=== PATIENT | male | born 1940 | race African-American/Black ===

== ENCOUNTER 2016-11-17 11:24 | Emergency (ER) | payer MEDICARE, OTHER ==
[~2016-11-17] VITALS: Ht 182.9 cm; Wt 88.0 kg
[2016-11-17 12:19] LABS: BASOPHILS % 1.1 % (0.0-2.0); HEMATOCRIT. 42.7 % (42.0-52.0); HEMOGLOBIN. 14.4 g/dL (14.0-18.0); MEAN CORPUSCULAR HEMOGLOBIN 28.7 pg (28.0-32.0); MEAN CORPUSCULAR HGB CONC 33.8 g/dL (31.0-37.0); MEAN PLATELET VOLUME 7.7 fl (7.4-10.4); MONOCYTES % 7.6 % (2.0-8.0); NEUTROPHILS % 50.3 % (40.0-76.0); PLATELET 188 x1000/uL (130-400); RED BLOOD CELL COUNT 5.03 mill/uL (4.7-6.1); RED CELL DISTRIBUTION WIDTH 13.6 % (11.6-14.6); WHITE BLOOD COUNT 3.5 x1000/uL (4.5-11.0)
[2016-11-17 12:25] LABS: CHLORIDE 102 mEq/L (98-107); INDEX HEMOLYSI 1 (1-3); INDEX ICTERIC 1 (1-4); INDEX LIPEMIC 1 (1-3)
[2016-11-17 12:31] LABS: ALANINE AMINOTRANSFERASE 28 IU/L (13-61); ANION GAP 13; CALCIUM 9.1 mg/dL (8.5-10.1); CARBON DIOXIDE 29 mEq/L (21-32); UREA NITROGEN BLOOD 15 mg/dL (7-21); eGFR 60 mL/min (>60)
[2016-11-17 12:34] LABS: INR 1.1; PROTHROMBIN TIME 11.3 sec
[2016-11-17 12:35] LABS: TROPONIN I 0.03 ng/mL (0.00-0.04)
[2016-11-17] MEDS ORDERED: LABETALOL 5MG/ML SYR 20 MG/4 ML SYRINGE IV ONE (13:00)
[2016-11-17 16:23] VITALS: BP 125/67
[2016-11-17] MEDS ORDERED: ENOXAPARIN 40MG/0.4ML SYR SUBCUT SCH (16:45)
[2016-11-17] MEDS ORDERED: CLONIDINE 0.1MG TABLET PO PRN (16:45)
[2016-11-17] MEDS ORDERED: IPRATROPIUM/ALBUTEROL 0.5-3(2.5)MG/3ML NEB INH PRN (16:45)
[2016-11-17] MEDS ORDERED: ONDANSETRON HCL 4MG/2ML VIAL IV PRN (16:45)
[2016-11-17] MEDS ORDERED: ACETAMINOPHEN 325MG TABLET PO PRN (16:45)
[2016-11-17] MEDS ORDERED: HYDROCODONE/ACETAMINOPHEN 5/325MG TABLET PO PRN (16:45)
== END 2016-11-17 17:19 | disposition home or self-care (01) ==
LOC: ER 13:10
DX: I10 Essential (primary) hypertension (principal); G90.8 Other disorders of autonomic nervous system; R41.0 Disorientation, unspecified; G31.9 Degenerative disease of nervous system, unspecified; I25.10 Atherosclerotic heart disease of native coronary artery without angina pectoris; Z95.1 Presence of aortocoronary bypass graft
CPT/HCPCS: 36415; 70450; 71010; 80053; 84484; 85025; 85610; 93005; 99285

== ENCOUNTER 2018-05-04 11:07 | Inpatient (IN) | payer OTHER ==
[~2018-05-04] VITALS: Ht 175.3 cm; Wt 83.9 kg
[2018-05-04] MEDS ORDERED: LOSA25TA12 PO (11:10)
[2018-05-04] MEDS ORDERED: LABETALOL 5MG/ML SYR 20 MG/4 ML SYRINGE IV ONE (11:30)
[2018-05-04 12:12] LABS: BASOPHILS % 0.5 % (0.0-2.0); EOSINOPHILS % 0.4 % (0.0-5.0); HEMATOCRIT. 42.2 % (42.0-52.0); HEMOGLOBIN. 14.2 g/dL (14.0-18.0); LYMPHOCYTES % 24.7 % (20.0-50.0); MEAN CORPUSCULAR HEMOGLOBIN 29.5 pg (28.0-32.0); MEAN CORPUSCULAR VOLUME 87.6 fL (80.0-94.0); MEAN PLATELET VOLUME 8.3 fl (7.4-10.4); MONOCYTES % 3.7 % (2.0-8.0); NEUTROPHILS % 70.7 % (40.0-76.0); PLATELET 168 x1000/uL (130-400); RED BLOOD CELL COUNT 4.81 mill/uL (4.7-6.1); RED CELL DISTRIBUTION WIDTH 14.1 % (11.6-14.6)
[2018-05-04 12:17] LABS: CHLORIDE 102 mEq/L (98-107); INR 1.1; PARTIAL THROMBOPLASTIN TIME 28.5 sec (23.4-31.0); PROTHROMBIN TIME 11.1 sec (9.1-11.1)
[2018-05-04 13:27] LABS: CLARITY URINE CLEAR (CLEAR); COLOR URINE YELLOW (YELLOW); KETONES URINE NEGATIVE (NEGATIVE); LEUKOCYTE ESTERASE URINE NEGATIVE (NEGATIVE); NITRITE URINE NEGATIVE (NEGATIVE); OCCULT BLOOD URINE NEGATIVE (NEGATIVE); PH URINE 6.5 (4.5-8.0); PROTEIN URINE NEGATIVE (NEGATIVE); SPECIFIC GRAVITY URINE 1.014 (1.005-1.030); UROBILINOGEN URINE 0.2 E.U./dL (0.2-1.0)
[2018-05-04] MEDS ORDERED: DIPHENHYDRAMINE 50MG/ML VIAL IV PRN (16:45)
[2018-05-04] MEDS ORDERED: MECLIZINE 25MG TABLET PO PRN (16:45)
[2018-05-04] MEDS ORDERED: CLONIDINE 0.1MG TABLET PO PRN (16:45)
[2018-05-04] MEDS ORDERED: ONDANSETRON HCL 4MG/2ML INJ IV PRN (16:45)
[2018-05-04] MEDS ORDERED: HYDROCODONE/ACETAMINOPHEN 5/325MG TABLET PO PRN (16:45)
[2018-05-04] MEDS ORDERED: ACETAMINOPHEN 650MG SUPP PR PRN (16:45)
[2018-05-04] MEDS ORDERED: MAGNESIUM/ALUMINUM HYDROXIDE/SIMETHICONE 30ML UDC PO PRN (16:45)
[2018-05-04] MEDS ORDERED: IPRATROPIUM/ALBUTEROL 0.5-3(2.5)MG/3ML NEB INH PRN (16:45)
[2018-05-04] MEDS ORDERED: ASPIRIN 81MG TABLET PO ONE (17:00)
[2018-05-04] MEDS: LOSARTAN POTASSIUM 25 MG TABLET PO SCH (18:43)
[2018-05-04 20:11] VITALS: BP 209/77
[2018-05-04] MEDS ORDERED: NA PHOS,M-B/NA PHOS,DI-BA ENEMA 118ML PR PRN (20:30)
[2018-05-04 20:33] LABS: *AMPHETAMINES SCREEN URINE NEGATIVE (NEGATIVE); *BARBITURATES SCREEN URINE NEGATIVE (NEGATIVE); *BENZODIAZEPINES SCREEN URINE NEGATIVE (NEGATIVE); *COCAINE SCREEN URINE NEGATIVE (NEGATIVE); CANNABINOID URINE SCREEN NEGATIVE (NEGATIVE); METHADONE URINE SCREEN NEGATIVE (NEGATIVE); OPIATES URINE SCREEN NEGATIVE (NEGATIVE); PHENCYCLIDINE URINE SCREEN NEGATIVE (NEGATIVE)
[2018-05-04 20:40] VITALS: BP 209/77
[2018-05-04] MEDS ORDERED: ASPI-986 MT (20:48)
[2018-05-04] MEDS ORDERED: LOSA50TA20 MT (20:48)
[2018-05-04] MEDS ORDERED: CARV3.1242 MT (20:50)
[2018-05-04] MEDS ORDERED: VIAG50 MT (20:51)
[2018-05-04] MEDS ORDERED: [UNRECOGNIZED DRUG - CODE] TP (20:52)
[2018-05-04] MEDS ORDERED: MECL-174 PO (20:54)
[2018-05-04] MEDS: ENOXAPARIN 40MG/0.4ML SYR SUBCUT SCH (21:53)
[2018-05-04] MEDS: ASPIRIN 81MG EC TABLET PO SCH (21:54)
[2018-05-04] MEDS: CARVEDILOL 3.125 MG TABLET PO SCH (21:54)
[2018-05-05] VITALS (7 sets, daily range): BP systolic 124–193; BP diastolic 59–98
[2018-05-05 02:26] LABS: CREATINE KINASE MB FRACTION 4.1 ng/mL (0.5-3.6)
[2018-05-05 07:39] LABS: BASOPHILS % 0.7 % (0.0-2.0); EOSINOPHILS % 1.9 % (0.0-5.0); HEMATOCRIT. 39.3 % (42.0-52.0); HEMOGLOBIN. 13.6 g/dL (14.0-18.0); LYMPHOCYTES % 51.1 % (20.0-50.0); MEAN CORPUSCULAR HEMOGLOBIN 30.1 pg (28.0-32.0); MEAN CORPUSCULAR VOLUME 86.9 fL (80.0-94.0); MEAN PLATELET VOLUME 8.1 fl (7.4-10.4); MONOCYTES % 6.7 % (2.0-8.0); NEUTROPHILS % 39.6 % (40.0-76.0); PLATELET 160 x1000/uL (130-400); RED BLOOD CELL COUNT 4.51 mill/uL (4.7-6.1); RED CELL DISTRIBUTION WIDTH 13.8 % (11.6-14.6)
[2018-05-05] MEDS ORDERED: PNEUMOCOCCAL 23-VAL P-SAC VAC 0.5 ML IM ONE (08:00)
[2018-05-05 08:14] LABS: CHLORIDE 106 mEq/L (98-107)
[2018-05-05 08:32] LABS: CREATINE KINASE 295 IU/L (39-308); CREATINE KINASE MB FRACTION 3.9 ng/mL (0.5-3.6); HDL CHOLESTEROL 39 mg/dL (40-59); LDL CHOLESTEROL 85 mg/dL (5-100)
[2018-05-05] MEDS: LOSARTAN POTASSIUM 25 MG TABLET PO SCH (09:17)
[2018-05-05] MEDS: ASPIRIN 81MG EC TABLET PO SCH (09:17)
[2018-05-05] MEDS: FUROSEMIDE 40MG/4ML VIAL IV SCH (09:18)
[2018-05-05] MEDS: CARVEDILOL 3.125 MG TABLET PO SCH ×2 (09:18→21:08)
[2018-05-05] MEDS ORDERED: INFLUENZA VIRUS VACCINE(AFLURIA) 0.5ML SYR IM ONE (10:00)
[2018-05-05] MEDS ORDERED: HYDRALAZINE HCL 50MG TABLET PO SCH (12:30)
[2018-05-05] MEDS ORDERED: CLONIDINE 0.2MG TABLET PO PRN (12:45)
[2018-05-05] MEDS ORDERED: CLONIDINE 0.1MG TABLET PO PRN (13:00)
[2018-05-05] MEDS ORDERED: CLONIDINE 0.2MG TABLET PO SCH (13:00)
[2018-05-05] MEDS: HYDRALAZINE HCL 100MG TABLET PO SCH ×2 (14:00→21:19)
[2018-05-05] MEDS: LOSARTAN POTASSIUM 50 MG TABLET PO SCH (21:08)
[2018-05-05] MEDS: CLONIDINE 0.1MG TABLET PO SCH (21:08)
[2018-05-05] MEDS: ENOXAPARIN 40MG/0.4ML SYR SUBCUT SCH (21:15)
[2018-05-05] MEDS: ACETAMINOPHEN 325MG TABLET PO PRN (22:57)
[2018-05-06] VITALS: BP 118/60
[2018-05-06 05:00] VITALS: BP_SYST 106; BP_SYST 112; BP_SYST 91; BP_DIAS 54; BP_DIAS 58
[2018-05-06] MEDS: HYDRALAZINE HCL 100MG TABLET PO SCH ×3 (05:41→23:33)
[2018-05-06 07:55] LABS: BASOPHILS % 0.5 % (0.0-2.0); EOSINOPHILS % 1.3 % (0.0-5.0); HEMATOCRIT. 42.9 % (42.0-52.0); HEMOGLOBIN. 14.6 g/dL (14.0-18.0); LYMPHOCYTES % 30.6 % (20.0-50.0); MEAN CORPUSCULAR HEMOGLOBIN 29.9 pg (28.0-32.0); MEAN CORPUSCULAR VOLUME 87.9 fL (80.0-94.0); MEAN PLATELET VOLUME 8.3 fl (7.4-10.4); MONOCYTES % 7.3 % (2.0-8.0); NEUTROPHILS % 60.3 % (40.0-76.0); PLATELET 185 x1000/uL (130-400); RED BLOOD CELL COUNT 4.88 mill/uL (4.7-6.1); RED CELL DISTRIBUTION WIDTH 14.1 % (11.6-14.6)
[2018-05-06 08:00] VITALS: BP 110/42
[2018-05-06 08:15] LABS: CHLORIDE 103 mEq/L (98-107)
[2018-05-06 08:31] LABS: CREATINE KINASE 287 IU/L (39-308); CREATINE KINASE MB FRACTION 13.5 ng/mL (0.5-3.6); HDL CHOLESTEROL 36 mg/dL (40-59); LDL CHOLESTEROL 86 mg/dL (5-100)
[2018-05-06] MEDS: CLONIDINE 0.1MG TABLET PO SCH ×2 (09:00→21:00)
[2018-05-06] MEDS: FUROSEMIDE 40MG/4ML VIAL IV SCH (09:34)
[2018-05-06] MEDS: ASPIRIN 81MG EC TABLET PO SCH (09:34)
[2018-05-06] MEDS: LOSARTAN POTASSIUM 50 MG TABLET PO SCH ×2 (09:35→20:20)
[2018-05-06] MEDS: CARVEDILOL 3.125 MG TABLET PO SCH ×2 (09:35→20:21)
[2018-05-06 12:00] VITALS: BP_SYST 110; BP_SYST 112; BP_DIAS 50; BP_DIAS 60
[2018-05-06 17:50] VITALS: BP 169/75
[2018-05-06] MEDS: NITROGLYCERIN 0.4MG TABLET SL SL PRN ×2 (17:55→18:01)
[2018-05-06] MEDS ORDERED: MORPHINE SULFATE 4 MG/ML CPJ (NOT FOR IM USE) IV PRN (18:00)
[2018-05-06 20:00] VITALS: BP_SYST 110; BP_SYST 122; BP_SYST 123; BP_DIAS 50; BP_DIAS 54
[2018-05-06] MEDS: ENOXAPARIN 40MG/0.4ML SYR SUBCUT SCH (20:24)
[2018-05-06] MEDS ORDERED: ENOXAPARIN 40MG/0.4ML SYR SUBCUT SCH (22:30)
[2018-05-06] MEDS: ACETAMINOPHEN 325MG TABLET PO PRN (23:33)
[2018-05-07] VITALS (12 sets, daily range): BP systolic 101–143; BP diastolic 53–74
[2018-05-07] MEDS: NITROGLYCERIN OINT 1GM/INCH UDPKT TD SCH ×5 (01:12→17:23)
[2018-05-07] MEDS: HYDRALAZINE HCL 100MG TABLET PO SCH ×2 (06:00→14:00)
[2018-05-07] MEDS: FUROSEMIDE 40MG/4ML VIAL IV SCH (08:56)
[2018-05-07] MEDS: LOSARTAN POTASSIUM 50 MG TABLET PO SCH (08:57)
[2018-05-07] MEDS: METOPROLOL TARTRATE 50MG TABLET PO SCH ×2 (08:57→21:15)
[2018-05-07] MEDS: ASPIRIN 81MG EC TABLET PO SCH (08:57)
[2018-05-07] MEDS: CLONIDINE 0.1MG TABLET PO SCH ×2 (08:58→21:00)
[2018-05-07] MEDS ORDERED: ENOXAPARIN 80MG/0.8ML SYR SUBCUT SCH (09:00)
[2018-05-07] MEDS ORDERED: SODIUM CHLORIDE 0.9% 1,000 ML IV SCH (09:15)
[2018-05-07] MEDS ORDERED: LIDOCAINE HCL 1% 20ML VIAL (Pyxis) INJ ONE (10:12)
[2018-05-07] MEDS: CLOPIDOGREL 75MG TABLET PO SCH (10:12)
[2018-05-07] MEDS ORDERED: IODIXANOL 320MG/ML 100 ML BOTTLE IV ONE ×2 (10:12→11:09)
[2018-05-07] MEDS ORDERED: MIDAZOLAM HCL 2 MG/2 ML VIAL ONE (10:47)
[2018-05-07] MEDS ORDERED: FENTANYL CITRATE/PF 50MCG/ML 2ML VIAL ONE (10:48)
[2018-05-07] MEDS ORDERED: ATROPINE SULFATE 1MG/10ML SYR IV PRN (11:30)
[2018-05-07] MEDS ORDERED: ACETAMINOPHEN 325MG TABLET PO PRN (11:30)
[2018-05-07] MEDS ORDERED: NITROGLYCERIN 50MCG/ML 10ML VIAL (CATH LAB) IV ONE (15:21)
[2018-05-07] MEDS ORDERED: NICARDIPINE 100MCG/ML 10ML VIAL (CATH LAB) IV ONE (15:21)
[2018-05-07] MEDS: ACETAMINOPHEN 325MG TABLET PO PRN (16:31)
[2018-05-07] MEDS: ISOSORBIDE MONONITRATE 30MG TABLET SR 24HR PO SCH (21:15)
[2018-05-08] VITALS (10 sets, daily range): BP systolic 108–138; BP diastolic 56–86
[2018-05-08] MEDS: ACETAMINOPHEN 325MG TABLET PO PRN (00:08)
[2018-05-08 06:31] LABS: BASOPHILS % 0.4 % (0.0-2.0); EOSINOPHILS % 1.4 % (0.0-5.0); HEMATOCRIT. 38.9 % (42.0-52.0); HEMOGLOBIN. 13.3 g/dL (14.0-18.0); LYMPHOCYTES % 35.6 % (20.0-50.0); MEAN PLATELET VOLUME 7.8 fl (7.4-10.4); MONOCYTES % 8.6 % (2.0-8.0); PLATELET 186 x1000/uL (130-400); RED BLOOD CELL COUNT 4.42 mill/uL (4.7-6.1); RED CELL DISTRIBUTION WIDTH 14.1 % (11.6-14.6)
[2018-05-08 07:21] LABS: CHLORIDE 103 mEq/L (98-107)
[2018-05-08] MEDS: ISOSORBIDE MONONITRATE 30MG TABLET SR 24HR PO SCH (08:51)
[2018-05-08] MEDS: CLOPIDOGREL 75MG TABLET PO SCH (08:51)
[2018-05-08] MEDS: METOPROLOL TARTRATE 50MG TABLET PO SCH (08:52)
[2018-05-08] MEDS ORDERED: CLOPIDOGREL 75MG TABLET PO SCH (09:00)
[2018-05-08] MEDS: CLONIDINE 0.1MG TABLET PO SCH (09:00)
[2018-05-08] MEDS ORDERED: ASPIRIN 81MG TABLET PO SCH (09:00)
[2018-05-08] MEDS ORDERED: LOSARTAN POTASSIUM 50 MG TABLET PO SCH (09:00)
[2018-05-08 20:19] LABS: HEPATITIS B SURFACE ANTIGEN NEGATIVE
[2018-05-08 20:47] LABS: HEPATITIS B CORE AB IGM NEGATIVE
[2018-05-08 20:48] LABS: HEPATITIS A AB IGM NEGATIVE (NEGATIVE)
== END 2018-05-08 19:06 | disposition home or self-care (01) | DRG 280 ==
LOC: ER 11:07 → 8WST 12:15 → EDBEDREQ 12:19 → ENRESERV 19:21 → 3WST 05-06 22:41
PROVIDERS: ADMIT Internal Medicine; ATTEND Internal Medicine
PROC: 4A023N7 Measurement of Cardiac Sampling and Pressure, Left Heart, Percutaneous Approach (ICD-10-PCS; principal; 2018-05-07)
PROC: B2131ZZ Fluoroscopy of Multiple Coronary Artery Bypass Grafts using Low Osmolar Contrast (ICD-10-PCS; 2018-05-07)
PROC: B2181ZZ Fluoroscopy of Left Internal Mammary Bypass Graft using Low Osmolar Contrast (ICD-10-PCS; 2018-05-07)
PROC: B2111ZZ Fluoroscopy of Multiple Coronary Arteries using Low Osmolar Contrast (ICD-10-PCS; 2018-05-07)
DX: I21.4 Non-ST elevation (NSTEMI) myocardial infarction (principal); I50.33 Acute on chronic diastolic (congestive) heart failure; N17.9 Acute kidney failure, unspecified; R73.9 Hyperglycemia, unspecified; E78.5 Hyperlipidemia, unspecified; E78.00 Pure hypercholesterolemia, unspecified; I11.0 Hypertensive heart disease with heart failure; H40.9 Unspecified glaucoma; G90.8 Other disorders of autonomic nervous system; I25.10 Atherosclerotic heart disease of native coronary artery without angina pectoris; I16.0 Hypertensive urgency; Z82.49 Family history of ischemic heart disease and other diseases of the circulatory system; Z95.1 Presence of aortocoronary bypass graft; Z79.899 Other long term (current) drug therapy; Z79.82 Long term (current) use of aspirin
CPT/HCPCS: 36415; 71045; 80048; 80061; 80305; 82550; 82553; 83036; 83735; 83880; 84439; 84443; 84484; 85379; 86703; 86705; 86709; 86803; 87340; 90686; 90732; 93005; 93306; 93455; 93880; 93970; 96374; 97162; 99291; C1760; C1769; C1887; C1893; J1644; J1650; J1940; J2250; J2270; J3010; J3490; J7030; J8597; Q9967

== ENCOUNTER 2018-10-27 13:04 | Inpatient (IN) | payer OTHER ==
[~2018-10-27] VITALS: Ht 182.9 cm; Wt 82.6 kg
[~2018-10-27 13:04] MED LIST: LOSA50TA20 MT
[2018-10-27 14:02] LABS: BASOPHILS % 0.4 % (0.0-2.0); EOSINOPHILS % 0.3 % (0.0-5.0); HEMOGLOBIN. 14.7 g/dL (14.0-18.0); LYMPHOCYTES % 19.3 % (20.0-50.0); MEAN CORPUSCULAR VOLUME 87.7 fL (80.0-94.0); MEAN PLATELET VOLUME 7.6 fl (7.4-10.4); MONOCYTES % 4.9 % (2.0-8.0); NEUTROPHILS % 75.1 % (40.0-76.0); PLATELET 194 x1000/uL (130-400); RED CELL DISTRIBUTION WIDTH 14.1 % (11.6-14.6)
[2018-10-27 14:06] LABS: CHLORIDE 102 mEq/L (98-107)
[2018-10-27 14:09] LABS: INR 1.1; PARTIAL THROMBOPLASTIN TIME 28.3 sec (23.4-31.0); PROTHROMBIN TIME 10.8 sec (9.6-11.0)
[2018-10-27] MEDS ORDERED: MECLIZINE 25MG TABLET PO ONE (14:30)
[2018-10-27] MEDS ORDERED: ASPIRIN 81MG TABLET PO ONE (16:15)
[2018-10-27] MEDS ORDERED: IPRATROPIUM/ALBUTEROL 0.5-3(2.5)MG/3ML NEB INH PRN (18:15)
[2018-10-27] MEDS ORDERED: DIPHENHYDRAMINE 50MG/ML VIAL IV PRN (18:30)
[2018-10-27] MEDS ORDERED: MAGNESIUM/ALUMINUM HYDROXIDE/SIMETHICONE 30ML UDC PO PRN (18:30)
[2018-10-27] MEDS ORDERED: ACETAMINOPHEN 325MG TABLET PO PRN (18:30)
[2018-10-27] MEDS ORDERED: ACETAMINOPHEN 650MG SUPP PR PRN (18:30)
[2018-10-27] MEDS ORDERED: DOCUSATE SODIUM 100MG CAPSULE PO PRN (18:30)
[2018-10-27] MEDS ORDERED: MECLIZINE 25MG TABLET PO PRN (18:30)
[2018-10-27 20:20] VITALS: BP_SYST 180; BP_SYST 189; BP_SYST 204; BP_DIAS 80; BP_DIAS 82; BP_DIAS 96
[2018-10-27] MEDS ORDERED: HYDROCODONE/ACETAMINOPHEN 5/325MG TABLET PO PRN (22:01)
[2018-10-27] MEDS ORDERED: CLONIDINE 0.1MG TABLET PO PRN (22:02)
[2018-10-27] MEDS: LOSARTAN POTASSIUM 25 MG TABLET PO SCH (22:27)
[2018-10-28] VITALS (8 sets, daily range): BP systolic 101–180; BP diastolic 49–80
[2018-10-28 02:05] LABS: CREATINE KINASE 524 IU/L (39-308)
[2018-10-28 02:07] LABS: CREATINE KINASE MB FRACTION 6.1 ng/mL (0.5-3.6)
[2018-10-28 07:16] LABS: BASOPHILS % 0.6 % (0.0-2.0); EOSINOPHILS % 2.4 % (0.0-5.0); HEMATOCRIT. 39.4 % (42.0-52.0); HEMOGLOBIN. 13.6 g/dL (14.0-18.0); LYMPHOCYTES % 40.2 % (20.0-50.0); MEAN CORPUSCULAR HEMOGLOBIN 29.9 pg (28.0-32.0); MEAN CORPUSCULAR VOLUME 86.7 fL (80.0-94.0); MEAN PLATELET VOLUME 7.8 fl (7.4-10.4); MONOCYTES % 9.2 % (2.0-8.0); NEUTROPHILS % 47.6 % (40.0-76.0); PLATELET 183 x1000/uL (130-400); RED BLOOD CELL COUNT 4.54 mill/uL (4.7-6.1); RED CELL DISTRIBUTION WIDTH 13.6 % (11.6-14.6)
[2018-10-28 07:24] LABS: CHLORIDE 104 mEq/L (98-107)
[2018-10-28 07:35] LABS: CREATINE KINASE 611 IU/L (39-308); LDL CHOLESTEROL 90 mg/dL (5-100)
[2018-10-28 07:36] LABS: T4 FREE 1.15 ng/dL (0.76-1.46)
[2018-10-28 07:37] LABS: HDL CHOLESTEROL 42 mg/dL (40-59)
[2018-10-28] MEDS ORDERED: PNEUMOCOCCAL 23-VAL P-SAC VAC 0.5 ML IM ONE (08:00)
[2018-10-28] MEDS: LOSARTAN POTASSIUM 25 MG TABLET PO SCH (09:00)
[2018-10-28] MEDS ORDERED: ENOXAPARIN 40MG/0.4ML SYR SUBCUT SCH (09:00)
[2018-10-28] MEDS ORDERED: ASPIRIN 81MG EC TABLET PO SCH (09:00)
[2018-10-28] MEDS ORDERED: POTASSIUM CHLORIDE 20MEQ TABLET SR PO NR (10:45)
[2018-10-28] MEDS ORDERED: SODIUM CHLORIDE 0.45% 1,000 ML IV SCH (10:45)
[2018-10-28 17:01] LABS: CREATINE KINASE MB FRACTION 5.5 ng/mL (0.5-3.6)
== END 2018-10-28 22:20 | disposition home or self-care (01) | DRG 73 ==
LOC: ER 13:04 → 6WST 14:37 → EDBEDREQ 14:43 → ENRESERV 20:26 → CANRESERV 20:26 → ENRESERV 20:29
PROVIDERS: ADMIT Internal Medicine; ATTEND Internal Medicine
DX: G90.8 Other disorders of autonomic nervous system (principal); I50.33 Acute on chronic diastolic (congestive) heart failure; M62.82 Rhabdomyolysis; I24.9 Acute ischemic heart disease, unspecified; I11.0 Hypertensive heart disease with heart failure; I49.9 Cardiac arrhythmia, unspecified; R42 Dizziness and giddiness; E78.5 Hyperlipidemia, unspecified; R73.9 Hyperglycemia, unspecified; E87.6 Hypokalemia; I25.10 Atherosclerotic heart disease of native coronary artery without angina pectoris; Z95.1 Presence of aortocoronary bypass graft; Z86.73 Personal history of transient ischemic attack (TIA), and cerebral infarction without residual deficits; Z91.19 Patient's noncompliance with other medical treatment and regimen
CPT/HCPCS: 36415; 70551; 71045; 74018; 80061; 82550; 82553; 83036; 83735; 83880; 84439; 84443; 84484; 85379; 90732; 93005; 93306; 93880; 97162; 99285; J1650; J8597

== ENCOUNTER 2022-04-19 14:22 | Inpatient (IN) | payer MEDICAID, OTHER ==
[~2022-04-19] VITALS: Ht 182.9 cm; Wt 61.2 kg
[~2022-04-19 14:22] MED LIST changes: -LOSA50TA20 MT; +LOSA50TA41 MT
[2022-04-19] MEDS ORDERED: VISCOUS LIDOCAINE 2% 15 ML UDC PO ONE (14:45)
[2022-04-19] MEDS ORDERED: ASPIRIN 81MG TABLET PO ONE (14:45)
[2022-04-19] MEDS ORDERED: MAGNESIUM/ALUMINUM HYDROXIDE/SIMETHICONE 30ML UDC PO ONE (14:45)
[2022-04-19] MEDS ORDERED: DICYCLOMINE 10 MG/5 ML ORAL SYR PO ONE (14:45)
[2022-04-19 15:03] LABS: BASOPHILS % 0.8 % (0.0-2.0); EOSINOPHILS % 0.3 % (0.0-5.0); HEMATOCRIT. 36.9 % (42.0-52.0); HEMOGLOBIN. 11.6 g/dL (14.0-18.0); LYMPHOCYTES % 14.6 % (20.0-50.0); MEAN CORPUSCULAR HEMOGLOBIN 25.1 pg (28.0-32.0); MEAN CORPUSCULAR VOLUME 79.9 fL (80.0-94.0); MEAN PLATELET VOLUME 9.1 fl (7.4-10.4); MONOCYTES % 4.5 % (2.0-8.0); NEUTROPHILS % 79.8 % (40.0-76.0); PLATELET 185 x1000/uL (130-400); RED BLOOD CELL COUNT 4.62 mill/uL (4.7-6.1); RED CELL DISTRIBUTION WIDTH 21.5 % (11.6-14.6)
[2022-04-19 15:17] LABS: CHLORIDE 110 mEq/L (98-107)
[2022-04-19] MEDS ORDERED: SODIUM CHLORIDE 0.9% 1,000 ML IV ONE (16:00)
[2022-04-19] MEDS ORDERED: FUROSEMIDE 40MG TABLET PO NR (16:15)
[2022-04-19 22:37] VITALS: BP 135/95
[2022-04-19 22:38] VITALS: BP 135/95
[2022-04-19] MEDS ORDERED: NITR0.4T49 SL (23:04)
[2022-04-19] MEDS ORDERED: LISI2.5T47 PO (23:04)
[2022-04-19] MEDS ORDERED: RANO500T3 PO (23:04)
[2022-04-19] MEDS ORDERED: ASPI-1497 PO (23:04)
[2022-04-19] MEDS ORDERED: ATOR40TA70 PO (23:04)
[2022-04-19] MEDS ORDERED: TAMS-11 PO (23:04)
[2022-04-19] MEDS ORDERED: TICA90TA PO (23:04)
[2022-04-19] MEDS ORDERED: METO-396 PO (23:04)
[2022-04-19] MEDS ORDERED: FURO-151 PO (23:04)
[2022-04-19] MEDS ORDERED: BUSP7.5T7 PO (23:05)
[2022-04-20] VITALS (11 sets, daily range): BP systolic 93–157; BP diastolic 49–110
[2022-04-20] MEDS ORDERED: ACETAMINOPHEN 325MG TABLET PO PRN ×2 (01:15→15:30)
[2022-04-20 02:13] LABS: BASOPHILS % 0.5 % (0.0-2.0); EOSINOPHILS % 0.1 % (0.0-5.0); HEMATOCRIT. 41.1 % (42.0-52.0); HEMOGLOBIN. 13.1 g/dL (14.0-18.0); LYMPHOCYTES % 17.7 % (20.0-50.0); MEAN CORPUSCULAR HEMOGLOBIN 25.3 pg (28.0-32.0); MEAN CORPUSCULAR VOLUME 79.3 fL (80.0-94.0); MEAN PLATELET VOLUME 9.5 fl (7.4-10.4); NEUTROPHILS % 75.7 % (40.0-76.0); PLATELET 188 x1000/uL (130-400); RED BLOOD CELL COUNT 5.19 mill/uL (4.7-6.1); RED CELL DISTRIBUTION WIDTH 21.2 % (11.6-14.6)
[2022-04-20 02:17] LABS: CHLORIDE 107 mEq/L (98-107)
[2022-04-20 02:26] LABS: CREATINE KINASE 204 IU/L (39-308); CREATINE KINASE MB FRACTION 9.9 ng/mL (0.5-3.6); HDL CHOLESTEROL 69 mg/dL (40-59); LDL CHOLESTEROL 82 mg/dL (5-100)
[2022-04-20] MEDS: PANTOPRAZOLE 40MG DR TABLET PO SCH (06:10)
[2022-04-20] MEDS: RANOLAZINE 500 MG TAB.SR.12H PO SCH ×2 (08:40→21:30)
[2022-04-20] MEDS: TICAGRELOR 90 MG TABLET PO SCH ×2 (08:40→21:30)
[2022-04-20] MEDS: TAMSULOSIN HCL 0.4MG SR CAPSULE PO SCH (08:40)
[2022-04-20] MEDS: ASPIRIN 81MG TABLET PO SCH (08:41)
[2022-04-20] MEDS: BUSPIRONE HCL 5MG TABLET PO SCH ×2 (08:41→21:30)
[2022-04-20] MEDS: FUROSEMIDE 40MG TABLET PO SCH (08:41)
[2022-04-20] MEDS: LOSARTAN POTASSIUM 100 MG TABLET PO SCH (08:42)
[2022-04-20] MEDS ORDERED: NITROGLYCERIN 50MCG/ML 10ML VIAL (CATH LAB) IV ONE (09:00)
[2022-04-20] MEDS ORDERED: NICARDIPINE 100MCG/ML 10ML VIAL (CATH LAB) IV ONE (09:00)
[2022-04-20] MEDS ORDERED: METOPROLOL TARTRATE 25MG TABLET PO SCH (09:00)
[2022-04-20] MEDS ORDERED: ENOXAPARIN 40MG/0.4ML SYR SUBCUT SCH (09:00)
[2022-04-20] MEDS ORDERED: POTASSIUM CHLORIDE 20MEQ TABLET SR PO SCH (10:00)
[2022-04-20] MEDS ORDERED: MAGNESIUM 1 G PREMIX 100 ML IV SCH (11:00)
[2022-04-20] MEDS ORDERED: ASPIRIN/SOD BICARB/CITRIC ACID 324MG TAB EFF ONE (13:41)
[2022-04-20] MEDS ORDERED: HEPARIN SODIUM 1,000 UNIT/1ML VIAL IV ONE (13:41)
[2022-04-20] MEDS ORDERED: IODIXANOL 320MG/ML 100 ML BOTTLE IV ONE (13:42)
[2022-04-20] MEDS ORDERED: LIDOCAINE HCL/PF 2% 20MG/ML 5 ML/VIAL ONE (13:42)
[2022-04-20] MEDS ORDERED: MIDAZOLAM HCL 2 MG/2 ML VIAL ONE (14:07)
[2022-04-20] MEDS ORDERED: FENTANYL CITRATE/PF 50MCG/ML 2ML VIAL ONE (14:07)
[2022-04-20] MEDS ORDERED: FUROSEMIDE 40MG/4ML VIAL ONE (14:57)
[2022-04-20] MEDS ORDERED: SODIUM CHLORIDE 0.45% 1,000 ML IV SCH (15:30)
[2022-04-20] MEDS ORDERED: NALOXONE HCL 0.4MG/ML VIAL IV PRN (15:30)
[2022-04-20] MEDS ORDERED: ONDANSETRON HCL 4MG/2ML INJ IV PRN (15:30)
[2022-04-20] MEDS ORDERED: MORPHINE SULFATE 2 MG/ML CPJ (NOT FOR IM USE) IV PRN (15:30)
[2022-04-20] MEDS ORDERED: ATROPINE SULFATE 1MG/10ML SYR IV PRN (15:30)
[2022-04-20] MEDS ORDERED: CARVEDILOL 3.125 MG TABLET PO NR (19:00)
[2022-04-20] MEDS: ATORVASTATIN CALCIUM 40MG TABLET PO SCH (21:30)
[2022-04-21] VITALS (16 sets, daily range): BP systolic 83–126; BP diastolic 48–72
[2022-04-21 06:15] LABS: BASOPHILS % 0.5 % (0.0-2.0); EOSINOPHILS % 0.7 % (0.0-5.0); HEMATOCRIT. 36.7 % (42.0-52.0); HEMOGLOBIN. 11.5 g/dL (14.0-18.0); LYMPHOCYTES % 22.4 % (20.0-50.0); MEAN CORPUSCULAR HEMOGLOBIN 24.9 pg (28.0-32.0); MEAN CORPUSCULAR VOLUME 79.6 fL (80.0-94.0); MEAN PLATELET VOLUME 9.3 fl (7.4-10.4); MONOCYTES % 8.2 % (2.0-8.0); NEUTROPHILS % 68.2 % (40.0-76.0); PLATELET 147 x1000/uL (130-400); RED BLOOD CELL COUNT 4.61 mill/uL (4.7-6.1); RED CELL DISTRIBUTION WIDTH 21.1 % (11.6-14.6)
[2022-04-21] MEDS: PANTOPRAZOLE 40MG DR TABLET PO SCH (06:38)
[2022-04-21 06:52] LABS: CHLORIDE 104 mEq/L (98-107)
[2022-04-21 08:30] LABS: CLARITY URINE CLEAR (CLEAR); COLOR URINE YELLOW (YELLOW); KETONES URINE TRACE (NEGATIVE); LEUKOCYTE ESTERASE URINE NEGATIVE (NEGATIVE); NITRITE URINE NEGATIVE (NEGATIVE); OCCULT BLOOD URINE NEGATIVE (NEGATIVE); PH URINE 6.5 (4.5-8.0); PROTEIN URINE TRACE (NEGATIVE); SPECIFIC GRAVITY URINE 1.035 (1.005-1.030)
[2022-04-21] MEDS: ASPIRIN 81MG TABLET PO SCH (08:34)
[2022-04-21] MEDS: BUSPIRONE HCL 5MG TABLET PO SCH ×2 (08:35→22:06)
[2022-04-21] MEDS: TAMSULOSIN HCL 0.4MG SR CAPSULE PO SCH (08:35)
[2022-04-21] MEDS: FUROSEMIDE 40MG TABLET PO SCH (08:35)
[2022-04-21] MEDS: TICAGRELOR 90 MG TABLET PO SCH ×3 (08:35→17:55)
[2022-04-21] MEDS: LOSARTAN POTASSIUM 100 MG TABLET PO SCH (08:35)
[2022-04-21] MEDS: ENOXAPARIN 30MG/0.3ML SYR SUBCUT SCH ×2 (09:00→11:04)
[2022-04-21] MEDS ORDERED: CARVEDILOL 6.25 MG TABLET PO SCH (09:00)
[2022-04-21 09:09] LABS: *AMPHETAMINES SCREEN URINE NEGATIVE (NEGATIVE); *BARBITURATES SCREEN URINE NEGATIVE (NEGATIVE); *BENZODIAZEPINES SCREEN URINE PRESUMTIVE POSITIVE (NEGATIVE); *COCAINE SCREEN URINE NEGATIVE (NEGATIVE); CANNABINOID URINE SCREEN NEGATIVE (NEGATIVE); METHADONE URINE SCREEN NEGATIVE (NEGATIVE); OPIATES URINE SCREEN NEGATIVE (NEGATIVE); PHENCYCLIDINE URINE SCREEN NEGATIVE (NEGATIVE)
[2022-04-21] MEDS: RANOLAZINE 500 MG TAB.SR.12H PO SCH ×2 (11:04→22:05)
[2022-04-21] MEDS ORDERED: SODIUM CHLORIDE 0.9% 250 ML IV ONE (12:00)
[2022-04-21] MEDS: DOCUSATE SODIUM 100MG CAPSULE PO SCH (17:55)
[2022-04-21] MEDS: CARVEDILOL 3.125 MG TABLET PO SCH (21:00)
[2022-04-21] MEDS: MIDODRINE HCL 5MG TABLET PO SCH (22:06)
[2022-04-21] MEDS: ATORVASTATIN CALCIUM 40MG TABLET PO SCH (22:06)
[2022-04-22] VITALS (27 sets, daily range): BP systolic 74–127; BP diastolic 31–87
[2022-04-22] MEDS: FAMOTIDINE 20MG TABLET PO SCH (05:58)
[2022-04-22] MEDS: CARVEDILOL 3.125 MG TABLET PO SCH ×2 (08:41→20:42)
[2022-04-22] MEDS: MIDODRINE HCL 5MG TABLET PO SCH ×3 (08:53→17:22)
[2022-04-22] MEDS: DOCUSATE SODIUM 100MG CAPSULE PO SCH ×2 (08:53→17:20)
[2022-04-22] MEDS: TICAGRELOR 90 MG TABLET PO SCH ×2 (08:53→17:20)
[2022-04-22] MEDS: BUSPIRONE HCL 5MG TABLET PO SCH ×2 (08:53→20:42)
[2022-04-22] MEDS: ASPIRIN 81MG TABLET PO SCH (08:53)
[2022-04-22] MEDS: ENOXAPARIN 30MG/0.3ML SYR SUBCUT SCH (08:53)
[2022-04-22] MEDS: FUROSEMIDE 40MG TABLET PO SCH (09:00)
[2022-04-22] MEDS: TAMSULOSIN HCL 0.4MG SR CAPSULE PO SCH (09:00)
[2022-04-22] MEDS ORDERED: LOSARTAN POTASSIUM 100 MG TABLET PO SCH (09:00)
[2022-04-22] MEDS: RANOLAZINE 500 MG TAB.SR.12H PO SCH ×2 (12:43→20:42)
[2022-04-22 15:29] LABS: HEMATOCRIT 33.4 % (42.0-52.0); HEMOGLOBIN 10.7 g/dL (14.0-18.0); MEAN CORPUSCULAR HEMOGLOBIN 25.2 pg (28.0-32.0); MEAN CORPUSCULAR VOLUME 78.3 fL (80.0-94.0); PLATELET 147 x1000/uL (130-400); RED BLOOD CELL COUNT 4.26 mill/uL (4.7-6.1)
[2022-04-22 15:52] LABS: CHLORIDE 106 mEq/L (98-107)
[2022-04-22] MEDS: ATORVASTATIN CALCIUM 40MG TABLET PO SCH (20:41)
[2022-04-23] VITALS (12 sets, daily range): BP systolic 100–134; BP diastolic 50–81
[2022-04-23] MEDS: FAMOTIDINE 20MG TABLET PO SCH (06:20)
[2022-04-23] MEDS: BUSPIRONE HCL 5MG TABLET PO SCH ×2 (09:00→10:55)
[2022-04-23] MEDS: DOCUSATE SODIUM 100MG CAPSULE PO SCH ×2 (09:00→10:55)
[2022-04-23] MEDS: ASPIRIN 81MG TABLET PO SCH ×2 (09:00→10:55)
[2022-04-23] MEDS: TICAGRELOR 90 MG TABLET PO SCH ×3 (09:00→14:57)
[2022-04-23] MEDS: CARVEDILOL 3.125 MG TABLET PO SCH ×2 (09:00→10:56)
[2022-04-23] MEDS: TAMSULOSIN HCL 0.4MG SR CAPSULE PO SCH ×2 (09:00→10:57)
[2022-04-23] MEDS: FUROSEMIDE 40MG TABLET PO SCH ×2 (09:00→10:56)
[2022-04-23] MEDS: RANOLAZINE 500 MG TAB.SR.12H PO SCH (10:56)
[2022-04-23] MEDS: ENOXAPARIN 30MG/0.3ML SYR SUBCUT SCH (10:57)
[2022-04-23] MEDS ORDERED: MIDODRINE HCL 5MG TABLET PO SCH (13:00)
== END 2022-04-23 15:10 | disposition home health service (06) | DRG 281 ==
LOC: ER 14:26 → EDBEDREQ 18:22 → EDBEDREQTM 18:22 → ENRESERV 19:41 → 7EST 22:35 → 3WST 04-20 15:35
PROVIDERS: ADMIT Internal Medicine; ATTEND Internal Medicine
PROC: 4A023N7 Measurement of Cardiac Sampling and Pressure, Left Heart, Percutaneous Approach (ICD-10-PCS; principal; 2022-04-20)
PROC: B2111ZZ Fluoroscopy of Multiple Coronary Arteries using Low Osmolar Contrast (ICD-10-PCS; 2022-04-20)
PROC: B2131ZZ Fluoroscopy of Multiple Coronary Artery Bypass Grafts using Low Osmolar Contrast (ICD-10-PCS; 2022-04-20)
PROC: B2181ZZ Fluoroscopy of Left Internal Mammary Bypass Graft using Low Osmolar Contrast (ICD-10-PCS; 2022-04-20)
DX: I21.3 ST elevation (STEMI) myocardial infarction of unspecified site (principal); I47.2 Ventricular tachycardia; E78.5 Hyperlipidemia, unspecified; I10 Essential (primary) hypertension; I25.10 Atherosclerotic heart disease of native coronary artery without angina pectoris; I95.9 Hypotension, unspecified; Z20.822 Contact with and (suspected) exposure to COVID-19; I25.2 Old myocardial infarction; Z95.1 Presence of aortocoronary bypass graft; Z79.02 Long term (current) use of antithrombotics/antiplatelets; Z79.82 Long term (current) use of aspirin; Z79.899 Other long term (current) drug therapy
CPT/HCPCS: 36415; 71045; 80048; 80053; 80061; 80305; 81003; 82550; 82553; 83735; 83880; 84484; 85025; 85027; 87426; 93005; 93306; 93459; 93923; 99285; A6261; C1760; C1769; C1887; C1893; C9803; J1644; J1650; J1940; J2250; J3010; J3475; J3490; Q9967; J8499

== ENCOUNTER 2022-05-22 19:20 | Inpatient (IN) | payer OTHER ==
[~2022-05-22] VITALS: Ht 175.3 cm; Wt 65.3 kg
[~2022-05-22 19:20] MED LIST changes: +ASPI-1497 PO; +ATOR40TA70 PO; +BUSP7.5T7 PO; +FURO-151 PO; +LISI2.5T47 PO; +METO-396 PO; +NITR0.4T49 SL; +RANO500T3 PO; +TAMS-11 PO; +TICA90TA PO
[2022-05-22 20:31] LABS: BASOPHILS % 0.3 % (0.0-2.0); EOSINOPHILS % 0.1 % (0.0-5.0); HEMATOCRIT. 39.2 % (42.0-52.0); HEMOGLOBIN. 12.1 g/dL (14.0-18.0); MEAN CORPUSCULAR HEMOGLOBIN 25.7 pg (28.0-32.0); MEAN PLATELET VOLUME 9.1 fl (7.4-10.4); MONOCYTES % 3.5 % (2.0-8.0); NEUTROPHILS % 79.1 % (40.0-76.0); PLATELET 185 x1000/uL (130-400); RED BLOOD CELL COUNT 4.73 mill/uL (4.7-6.1); RED CELL DISTRIBUTION WIDTH 21.9 % (11.6-14.6)
[2022-05-22 20:39] LABS: CHLORIDE 105 mEq/L (98-107)
[2022-05-22] MEDS ORDERED: IPRATROPIUM/ALBUTEROL 0.5-3(2.5)MG/3ML NEB HHN ONE (20:45)
[2022-05-22] MEDS ORDERED: FUROSEMIDE 40MG/4ML VIAL IVP NR (23:00)
[2022-05-23] MEDS ORDERED: ENALAPRIL 2.5MG/2ML VIAL 2ML IV ONE
[2022-05-23] MEDS ORDERED: ENALAPRIL 1.25MG/ML VIAL 1ML IV NR
[2022-05-23 04:35] VITALS: BP 142/83
[2022-05-23 08:00] VITALS: BP 144/99
[2022-05-23] MEDS ORDERED: MAGNESIUM/ALUMINUM HYDROXIDE/SIMETHICONE 30ML UDC PO PRN (08:45)
[2022-05-23] MEDS ORDERED: ACETAMINOPHEN 325MG TABLET PO PRN (08:45)
[2022-05-23] MEDS ORDERED: ONDANSETRON HCL 4MG/2ML INJ IV PRN (08:45)
[2022-05-23] MEDS ORDERED: GUAIFENESIN 200MG/10ML SUGAR FREE UDC PO PRN (08:45)
[2022-05-23] MEDS ORDERED: IPRATROPIUM/ALBUTEROL 0.5-3(2.5)MG/3ML NEB HHN PRN (08:45)
[2022-05-23] MEDS ORDERED: FAMOTIDINE 20MG TABLET PO SCH (09:00)
[2022-05-23] MEDS ORDERED: ASPIRIN 81MG EC TABLET PO SCH (09:00)
[2022-05-23] MEDS: FAMOTIDINE 20MG TABLET PO SCH (10:19)
[2022-05-23] MEDS: ENOXAPARIN 40MG/0.4ML SYR SUBCUT SCH (10:19)
[2022-05-23] MEDS: FUROSEMIDE 40MG/4ML VIAL IVP SCH (10:43)
[2022-05-23 11:14] LABS: BG BASE EXCESS -4.1 mmol/L (-2.0-2.0); BG CARBOXYHEMOGLOBIN 0.2 % (0.5-1.5); BG DEOXYHEMOGLOBIN 4.4 % (0.0-5.0); BG FRACTION INSPIRED OXYGEN 80; BG HCO3 ACT 19.1 mmol/L (22.0-26.0); BG METHEMOGLOBIN 0.4 % (0.0-1.5); BG OXYGEN SATURATION 95.6 % (92.0-98.5); BG PCO2 29.8 mmHg (35.0-45.0); BG PH 7.424 (7.350-7.450); BG PO2 81.4 mmHg (75.0-100.0); BG SAMPLE SITE RIGHT BRACHIAL; BG TOTAL HEMOGLOBIN 14.1 g/dL (12.0-18.0); BG VENT MODE HIGH FLOW
[2022-05-23 12:00] VITALS: BP 119/76
[2022-05-23 16:00] VITALS: BP 111/67
[2022-05-23 16:46] LABS: CLARITY URINE CLEAR (CLEAR); COLOR URINE YELLOW (YELLOW); KETONES URINE NEGATIVE (NEGATIVE); LEUKOCYTE ESTERASE URINE 1+ (NEGATIVE); NITRITE URINE NEGATIVE (NEGATIVE); OCCULT BLOOD URINE NEGATIVE (NEGATIVE); PROTEIN URINE NEGATIVE (NEGATIVE); SPECIFIC GRAVITY URINE 1.011 (1.005-1.030); UROBILINOGEN URINE 0.2 E.U./dL (0.2-1.0)
[2022-05-23 18:30] LABS: CREATINE KINASE 213 IU/L (39-308); CREATINE KINASE MB FRACTION 7.8 ng/mL (0.5-3.6); HDL CHOLESTEROL 76 mg/dL (40-59); LDL CHOLESTEROL 56 mg/dL (5-100)
[2022-05-23 19:52] LABS: T4 FREE 1.27 ng/dL (0.76-1.46)
[2022-05-23 20:00] VITALS: BP 113/72
[2022-05-23] MEDS: AZITHROMYCIN 500 MG TABLET PO SCH (20:41)
[2022-05-24] VITALS: BP 103/51
[2022-05-24 00:44] LABS: CREATINE KINASE MB FRACTION 5.4 ng/mL (0.5-3.6)
[2022-05-24 04:00] VITALS: BP 101/66
[2022-05-24 08:00] VITALS: BP 110/77
[2022-05-24] MEDS: FUROSEMIDE 40MG/4ML VIAL IVP SCH ×2 (09:43→19:43)
[2022-05-24] MEDS: FAMOTIDINE 20MG TABLET PO SCH (09:43)
[2022-05-24] MEDS: AZITHROMYCIN 500 MG TABLET PO SCH (09:43)
[2022-05-24] MEDS: ENOXAPARIN 40MG/0.4ML SYR SUBCUT SCH (09:44)
[2022-05-24 11:26] LABS: HEMATOCRIT. 33.9 % (42.0-52.0); HEMOGLOBIN. 11.2 g/dL (14.0-18.0); MEAN CORPUSCULAR HEMOGLOBIN 26.3 pg (28.0-32.0); MEAN CORPUSCULAR VOLUME 79.9 fL (80.0-94.0); MEAN PLATELET VOLUME 9.6 fl (7.4-10.4); PLATELET 124 x1000/uL (130-400); RED BLOOD CELL COUNT 4.24 mill/uL (4.7-6.1); RED CELL DISTRIBUTION WIDTH 21.8 % (11.6-14.6)
[2022-05-24 12:41] LABS: PLATELET ESTIMATE SLIGHTLY DECREASED
[2022-05-24 13:09] LABS: CHLORIDE 102 mEq/L (98-107)
[2022-05-24 17:00] LABS: CHLORIDE 105 mEq/L (98-107)
[2022-05-24 17:10] LABS: CREATINE KINASE MB FRACTION 2.6 ng/mL (0.5-3.6); T4 FREE 1.3 ng/dL (0.76-1.46)
[2022-05-24] MEDS: CLOPIDOGREL 75MG TABLET PO SCH (19:43)
[2022-05-24 20:00] VITALS: BP 125/70
[2022-05-24] MEDS: METOPROLOL TARTRATE 25MG TABLET PO SCH (21:00)
[2022-05-24] MEDS: ATORVASTATIN CALCIUM 40MG TABLET PO SCH (21:37)
[2022-05-25] VITALS: BP 115/67
[2022-05-25 00:32] LABS: HEMOGLOBIN 11.2 g/dL (14.0-18.0); MEAN CORPUSCULAR HEMOGLOBIN 25.6 pg (28.0-32.0); MEAN CORPUSCULAR VOLUME 79.8 fL (80.0-94.0); PLATELET 125 x1000/uL (130-400); RED BLOOD CELL COUNT 4.38 mill/uL (4.7-6.1); RED CELL DISTRIBUTION WIDTH 21.7 % (11.6-14.6)
[2022-05-25 00:59] LABS: CREATINE KINASE MB FRACTION 1.7 ng/mL (0.5-3.6)
[2022-05-25 04:00] VITALS: BP 93/58
[2022-05-25 08:00] VITALS: BP 103/57
[2022-05-25] MEDS: METOPROLOL TARTRATE 25MG TABLET PO SCH ×2 (09:00→20:55)
[2022-05-25 09:24] LABS: CREATINE KINASE MB FRACTION 1.5 ng/mL (0.5-3.6)
[2022-05-25] MEDS: CLOPIDOGREL 75MG TABLET PO SCH (09:28)
[2022-05-25] MEDS: FAMOTIDINE 20MG TABLET PO SCH (09:28)
[2022-05-25] MEDS: LOSARTAN POTASSIUM 25 MG TABLET PO SCH (09:28)
[2022-05-25] MEDS: AZITHROMYCIN 500 MG TABLET PO SCH (09:28)
[2022-05-25] MEDS: ASPIRIN 81MG TABLET PO SCH (09:28)
[2022-05-25] MEDS: FUROSEMIDE 40MG/4ML VIAL IVP SCH ×2 (09:29→18:15)
[2022-05-25] MEDS: ENOXAPARIN 40MG/0.4ML SYR SUBCUT SCH (09:30)
[2022-05-25 12:00] VITALS: BP 101/68
[2022-05-25 16:00] VITALS: BP 94/52
[2022-05-25] MEDS: ACETAMINOPHEN 325MG TABLET PO PRN (18:15)
[2022-05-25 20:00] VITALS: BP 99/58
[2022-05-25] MEDS: ATORVASTATIN CALCIUM 40MG TABLET PO SCH (21:38)
[2022-05-26] VITALS (7 sets, daily range): BP systolic 93–117; BP diastolic 44–70
[2022-05-26] MEDS: AZITHROMYCIN 500 MG TABLET PO SCH (09:22)
[2022-05-26] MEDS: ASPIRIN 81MG TABLET PO SCH (09:22)
[2022-05-26] MEDS: FAMOTIDINE 20MG TABLET PO SCH (09:22)
[2022-05-26] MEDS: FUROSEMIDE 40MG/4ML VIAL IVP SCH ×2 (09:22→18:05)
[2022-05-26] MEDS: CLOPIDOGREL 75MG TABLET PO SCH (09:22)
[2022-05-26] MEDS: ENOXAPARIN 40MG/0.4ML SYR SUBCUT SCH (09:22)
[2022-05-26] MEDS: LOSARTAN POTASSIUM 25 MG TABLET PO SCH (09:23)
[2022-05-26] MEDS: METOPROLOL TARTRATE 25MG TABLET PO SCH ×2 (09:23→21:05)
[2022-05-26 11:38] LABS: HEMATOCRIT 30.8 % (42.0-52.0); HEMOGLOBIN 10.3 g/dL (14.0-18.0); MEAN CORPUSCULAR HEMOGLOBIN 26.4 pg (28.0-32.0); MEAN CORPUSCULAR VOLUME 79.2 fL (80.0-94.0); PLATELET 144 x1000/uL (130-400); RED BLOOD CELL COUNT 3.89 mill/uL (4.7-6.1); RED CELL DISTRIBUTION WIDTH 21.1 % (11.6-14.6)
[2022-05-26 12:03] LABS: CHLORIDE 102 mEq/L (98-107)
[2022-05-26 17:24] LABS: BG BASE EXCESS 5.1 mmol/L (-2.0-2.0); BG CARBOXYHEMOGLOBIN 0.1 % (0.5-1.5); BG DEOXYHEMOGLOBIN 7.3 % (0.0-5.0); BG HCO3 ACT 29.7 mmol/L (22.0-26.0); BG METHEMOGLOBIN 0.3 % (0.0-1.5); BG OXYGEN SATURATION 92.7 % (92.0-98.5); BG OXYHEMOGLOBIN 92.3 % (94.0-97.0); BG PCO2 43.9 mmHg (35.0-45.0); BG PH 7.448 (7.350-7.450); BG PO2 67.1 mmHg (75.0-100.0); BG SAMPLE SITE RIGHT BRACHIAL; BG TOTAL HEMOGLOBIN 11.6 g/dL (12.0-18.0); BG VENT MODE ROOM AIR
[2022-05-26] MEDS: ATORVASTATIN CALCIUM 40MG TABLET PO SCH (21:04)
[2022-05-27] VITALS: BP 137/71
[2022-05-27 04:00] VITALS: BP 129/64
[2022-05-27 08:00] VITALS: BP 132/79
[2022-05-27] MEDS ORDERED: POTASSIUM CHLORIDE 20MEQ TABLET SR PO SCH (08:00)
[2022-05-27] MEDS: AZITHROMYCIN 500 MG TABLET PO SCH (09:39)
[2022-05-27] MEDS: FAMOTIDINE 20MG TABLET PO SCH (09:39)
[2022-05-27] MEDS: ASPIRIN 81MG TABLET PO SCH (09:39)
[2022-05-27] MEDS: CLOPIDOGREL 75MG TABLET PO SCH (09:39)
[2022-05-27] MEDS: METOPROLOL TARTRATE 25MG TABLET PO SCH ×2 (09:40→21:08)
[2022-05-27] MEDS: FUROSEMIDE 40MG/4ML VIAL IVP SCH ×2 (09:40→18:24)
[2022-05-27] MEDS: LOSARTAN POTASSIUM 25 MG TABLET PO SCH (09:40)
[2022-05-27] MEDS: ENOXAPARIN 40MG/0.4ML SYR SUBCUT SCH (09:41)
[2022-05-27 12:00] VITALS: BP 96/53
[2022-05-27 16:00] VITALS: BP 106/64
[2022-05-27 20:28] VITALS: BP 124/80
[2022-05-27] MEDS: ATORVASTATIN CALCIUM 40MG TABLET PO SCH (21:06)
[2022-05-28] VITALS: BP 108/64
[2022-05-28 04:00] VITALS: BP 116/70
[2022-05-28 07:39] LABS: HEMATOCRIT 33.6 % (42.0-52.0); MEAN CORPUSCULAR HEMOGLOBIN 25.6 pg (28.0-32.0); MEAN CORPUSCULAR VOLUME 78.5 fL (80.0-94.0); PLATELET 176 x1000/uL (130-400); RED BLOOD CELL COUNT 4.29 mill/uL (4.7-6.1); RED CELL DISTRIBUTION WIDTH 20.8 % (11.6-14.6)
[2022-05-28 08:00] VITALS: BP 124/69
[2022-05-28 08:12] LABS: CHLORIDE 100 mEq/L (98-107)
[2022-05-28] MEDS: LOSARTAN POTASSIUM 25 MG TABLET PO SCH (08:31)
[2022-05-28] MEDS: ASPIRIN 81MG TABLET PO SCH (08:31)
[2022-05-28] MEDS: FAMOTIDINE 20MG TABLET PO SCH (08:31)
[2022-05-28] MEDS: METOPROLOL TARTRATE 25MG TABLET PO SCH ×2 (08:31→21:00)
[2022-05-28] MEDS: AZITHROMYCIN 500 MG TABLET PO SCH (08:31)
[2022-05-28] MEDS: CLOPIDOGREL 75MG TABLET PO SCH (08:31)
[2022-05-28] MEDS: ENOXAPARIN 40MG/0.4ML SYR SUBCUT SCH (08:31)
[2022-05-28] MEDS: FUROSEMIDE 40MG/4ML VIAL IVP SCH (08:32)
[2022-05-28 12:00] VITALS: BP 67/40
[2022-05-28] MEDS ORDERED: DEXT 5%/0.9% NACL 1,000 ML IV SCH (12:30)
[2022-05-28 13:09] LABS: BG BASE EXCESS 4.7 mmol/L (-2.0-2.0); BG CARBOXYHEMOGLOBIN 0.2 % (0.5-1.5); BG DEOXYHEMOGLOBIN 2.3 % (0.0-5.0); BG FRACTION INSPIRED OXYGEN 21; BG HCO3 ACT 27.2 mmol/L (22.0-26.0); BG METHEMOGLOBIN 0.2 % (0.0-1.5); BG OXYGEN SATURATION 97.7 % (92.0-98.5); BG OXYHEMOGLOBIN 97.3 % (94.0-97.0); BG PCO2 33.5 mmHg (35.0-45.0); BG PH 7.528 (7.350-7.450); BG PO2 95.8 mmHg (75.0-100.0); BG SAMPLE SITE LEFT BRACHIAL; BG TOTAL HEMOGLOBIN 12.1 g/dL (12.0-18.0); BG VENT MODE ROOM AIR
[2022-05-28 16:00] VITALS: BP 114/63
[2022-05-28 21:27] VITALS: BP 95/50
[2022-05-28] MEDS: ATORVASTATIN CALCIUM 40MG TABLET PO SCH (22:10)
[2022-05-29] VITALS: BP_SYST 118; BP_SYST 96; BP_DIAS 50; BP_DIAS 52
[2022-05-29 06:00] VITALS: BP 112/54
[2022-05-29 08:00] VITALS: BP 151/103
[2022-05-29] MEDS: FAMOTIDINE 20MG TABLET PO SCH (10:02)
[2022-05-29] MEDS: ASPIRIN 81MG TABLET PO SCH (10:02)
[2022-05-29] MEDS: METOPROLOL TARTRATE 25MG TABLET PO SCH ×2 (10:02→21:14)
[2022-05-29] MEDS: CLOPIDOGREL 75MG TABLET PO SCH (10:02)
[2022-05-29] MEDS: FUROSEMIDE 40MG/4ML VIAL IVP SCH ×2 (10:02→17:13)
[2022-05-29] MEDS: ENOXAPARIN 40MG/0.4ML SYR SUBCUT SCH (10:02)
[2022-05-29] MEDS: NITROGLYCERIN 0.4MG TABLET SL SL PRN ×2 (10:03→10:08)
[2022-05-29] MEDS: LOSARTAN POTASSIUM 25 MG TABLET PO SCH (10:03)
[2022-05-29 12:00] VITALS: BP 87/45
[2022-05-29 16:00] VITALS: BP 100/50
[2022-05-29 20:00] VITALS: BP 110/61
[2022-05-29] MEDS: ATORVASTATIN CALCIUM 40MG TABLET PO SCH (22:00)
[2022-05-30] VITALS: BP 109/58
[2022-05-30 04:00] VITALS: BP 116/70
[2022-05-30 08:00] VITALS: BP 121/78
[2022-05-30] MEDS: FUROSEMIDE 40MG/4ML VIAL IVP SCH ×2 (10:28→16:03)
[2022-05-30] MEDS: ASPIRIN 81MG TABLET PO SCH (10:28)
[2022-05-30] MEDS: FAMOTIDINE 20MG TABLET PO SCH (10:29)
[2022-05-30] MEDS: METOPROLOL TARTRATE 25MG TABLET PO SCH ×2 (10:29→21:02)
[2022-05-30] MEDS: CLOPIDOGREL 75MG TABLET PO SCH (10:29)
[2022-05-30] MEDS: LOSARTAN POTASSIUM 25 MG TABLET PO SCH (10:29)
[2022-05-30] MEDS: ENOXAPARIN 40MG/0.4ML SYR SUBCUT SCH (10:31)
[2022-05-30] MEDS ORDERED: IPRATROPIUM/ALBUTEROL 0.5-3(2.5)MG/3ML NEB HHN PRN (11:00)
[2022-05-30 12:00] VITALS: BP 97/48
[2022-05-30 16:00] VITALS: BP 106/62
[2022-05-30] MEDS: DOCUSATE SODIUM 100MG CAPSULE PO PRN ×2 (16:03→23:30)
[2022-05-30 20:00] VITALS: BP 117/72
[2022-05-30] MEDS: ATORVASTATIN CALCIUM 40MG TABLET PO SCH (21:01)
[2022-05-31] VITALS: BP 118/65
[2022-05-31 04:00] VITALS: BP 114/69
[2022-05-31 08:00] VITALS: BP 115/69
[2022-05-31] MEDS: ASPIRIN 81MG TABLET PO SCH (09:25)
[2022-05-31] MEDS: FUROSEMIDE 40MG/4ML VIAL IVP SCH (09:25)
[2022-05-31] MEDS: FAMOTIDINE 20MG TABLET PO SCH (09:25)
[2022-05-31] MEDS: CLOPIDOGREL 75MG TABLET PO SCH (09:25)
[2022-05-31] MEDS: LOSARTAN POTASSIUM 25 MG TABLET PO SCH (09:25)
[2022-05-31] MEDS: ENOXAPARIN 40MG/0.4ML SYR SUBCUT SCH (09:26)
[2022-05-31] MEDS: METOPROLOL TARTRATE 25MG TABLET PO SCH (09:26)
[2022-05-31 11:57] VITALS: BP 88/46
[2022-05-31 12:00] VITALS: BP 88/46
[2022-05-31] MEDS: ACETAMINOPHEN 325MG TABLET PO PRN (14:37)
[2022-05-31] MEDS: DOCUSATE SODIUM 100MG CAPSULE PO PRN (14:37)
[2022-06-01] MEDS ORDERED: FUROSEMIDE 40MG TABLET PO SCH (09:00)
== END 2022-05-31 15:25 | disposition home or self-care (01) | DRG 280 ==
LOC: ER 19:20 → EDBEDREQ 23:51 → 6WST 05-23 00:12 → EDBEDREQ 05-23 00:15 → ENRESERV 05-23 03:20
PROVIDERS: ADMIT Internal Medicine; ATTEND Internal Medicine
PROC: 5A0945A Assistance with Respiratory Ventilation, 24-96 Consecutive Hours, High Flow/Velocity Cannula (ICD-10-PCS; principal; 2022-05-23)
PROC: 5A09357 Assistance with Respiratory Ventilation, Less than 24 Consecutive Hours, Continuous Positive Airway Pressure (ICD-10-PCS; 2022-05-23)
DX: I11.0 Hypertensive heart disease with heart failure (principal); I50.23 Acute on chronic systolic (congestive) heart failure; I21.4 Non-ST elevation (NSTEMI) myocardial infarction; J96.01 Acute respiratory failure with hypoxia; J69.0 Pneumonitis due to inhalation of food and vomit; J44.1 Chronic obstructive pulmonary disease with (acute) exacerbation; I48.91 Unspecified atrial fibrillation; Z20.822 Contact with and (suspected) exposure to COVID-19; E78.5 Hyperlipidemia, unspecified; I25.10 Atherosclerotic heart disease of native coronary artery without angina pectoris; I25.5 Ischemic cardiomyopathy; R91.8 Other nonspecific abnormal finding of lung field; R74.01 Elevation of levels of liver transaminase levels; D64.9 Anemia, unspecified; N40.0 Benign prostatic hyperplasia without lower urinary tract symptoms; I08.0 Rheumatic disorders of both mitral and aortic valves; E87.6 Hypokalemia; Z95.1 Presence of aortocoronary bypass graft
CPT/HCPCS: 36415; 36600; 71045; 71275; 80048; 80053; 80061; 81003; 82375; 82550; 82553; 82805; 82962; 83036; 83735; 83880; 84439; 84443; 84484; 85025; 85027; 85379; 87426; 87804; 93005; 93306; 93308; 93970; 94618; 94640; 94660; 97162; 97166; 99291; C9803; J1650; J1940; J3490; J7042